=== PATIENT | male | born 1945 | race Caucasian/White ===

== ENCOUNTER 2018-09-14 09:07 | Inpatient (IN) ==
[~2018-09-14 09:07] MED LIST: ceFAZolin 1,000 MG, Sodium Chloride IRRigation 1,000 ML IR ONE
--- NOTE | 2018-09-14 09:10 | Anesthesia Evaluation PreOp ---
Date of Encounter: 09/14/18 Time of Encounter: 09:16 - Past History Planned Operation: Left CEA Cardiac History: HTN, Hyperlipidemia, Other (Left Carotid Stenosis) Pulmonary History: Denies Any Significant HX PATIENT FINANCIAL REPRESENTATIVE History: Denies Any Significant HX Other Medical History: Diabetes Type II, GERD (Hiatal Hernia), Other (Gout) Anesthesia History: No Prior Anesthetic Complications, Past Anesthesia (colonoscopy, bowel resection) Alcohol Use: none Drug use: none Medications and Allergies Allopurinol [Zyloprim 100 MG] 100 mg PO DAILY 09/10/18 [History] Atorvastatin Calcium [Lipitor] 10 mg PO DAILY 09/10/18 [History] Cholecalciferol (Vitamin D3) [Vitamin D3] 1,000 unit PO DAILY 09/10/18 [History] Finasteride [Proscar] 5 mg PO DAILY 09/10/18 [History] Latanoprost [Xalatan] 1 drop OP HS 09/10/18 [History] Losartan Potassium 25 mg PO DAILY 09/10/18 [History] Metoprolol Succinate [Toprol Xl] 50 mg PO DAILY 09/10/18 [History] Spironolactone [Aldactone] 25 mg PO DAILY 09/10/18 [History] dilTIAZem HCl [Diltiazem 24Hr Cd] 360 mg PO DAILY 09/10/18 [History] Allergy/AdvReac Type Severity Reaction Status Date / Time No Known Allergies Allergy Verified 09/10/18 08:40 - Meds/Allergy Pre-op Review Medications Reviewed: Yes Allergies Reviewed: Yes Beta Blockers on Current Med List: Yes If Beta Blockers taken, Date/Time (Last Dose taken): not given due to Low BP Anesthesia Results - Labs Laboratory Tests 09/02/18 09/08/18 09/08/18 13:54 08:41 08:41 WBC 10.6 Hgb 14.2 Hct 44.1 Plt Count 263 INR 1.0 Sodium 138 Potassium 4.5 Chloride 106 Carbon Dioxide 23 BUN 38 H Creatinine 1.86 H - Imaging EKG: report reviewed (SINUS BRADYCARDIA WITH FIRST DEGREE AV BLOCK NONSPECIFIC T-WAVE ABNORMALITY) Anesthesia Exam O2 Sat Height 1.6 m Weight 75.75 kg O2 Sat by Pulse Oximetry 99 Vital Signs Temp Pulse Resp BP Pulse Ox 97.5 F L 55 18 154/71 99 09/14/18 09:28 09/14/18 09:28 09/14/18 09:28 09/14/18 09:28 09/14/18 09:28 NPO (# of Hours): > 8 Hrs Pain Scale: 0 Pain Scale Used: Numeric (1 - 10) - HEENT Pupil (Motor): Pupils equal, EOMI Mallampati: III (Recessed chin - Have glide scope available) Teeth: Normal Oral Opening: Greater than 3 - PATIENT FINANCIAL REPRESENTATIVE LOC: Oriented PATIENT FINANCIAL REPRESENTATIVE Motor: Normal RUE, Normal LUE, Normal RLE, Normal LLE, Normal Face PATIENT FINANCIAL REPRESENTATIVE Sensory: Normal: RUE, LUE, RLE, LLE, Face - Cardiac Rhythm: Regular Murmur: None JVD: No Carotid Bruit: No - Pulmonary Breath Sounds: bilateral Clear Respiratory Effort: Symmetrical Anesthesia Assess/Plan ASA Score: 3 Level of consciousness: Cooperative Anesthetic Plan: General Autologous Blood: Yes Monitoring Plan: Standard Monitors, A-Line Recovery Plan: PACU
[2018-09-14] MEDS ORDERED: *HR* Remifentanil 2 MG VIAL IVP ONE (09:43)
[2018-09-14] MEDS ORDERED: *HR* FentaNYL (PF) 100 MCG/2 ML VIAL ONE (09:47)
[2018-09-14] MEDS ORDERED: *HR* Heparin 5,000 UNIT/ML VIAL ONE (09:47)
[2018-09-14] MEDS ORDERED: *HR* Succinylcholine 200 MG/10 ML VIAL IVP ONE (09:47)
[2018-09-14] MEDS ORDERED: Ondansetron 4 MG/2 ML VIAL ONE (09:47)
[2018-09-14] MEDS ORDERED: Lidocaine -MPF 2% 2 ML VIAL ONE ×2 (09:47→10:35)
[2018-09-14] MEDS ORDERED: *HR* Phenylephrine 10 MG/ML VIAL ONE (09:47)
[2018-09-14] MEDS ORDERED: EPHEDrine 50 MG/ML VIAL ONE (09:47)
[2018-09-14] MEDS ORDERED: *HR* Propofol 200 MG/20 ML VIAL IVP ONE (09:47)
[2018-09-14] MEDS ORDERED: Dexamethasone 4 MG/ML VIAL ONE (09:47)
[2018-09-14] MEDS ORDERED: Heparin 1,000 UNITS/500 mL 500 ML ONE (09:49)
[2018-09-14] MEDS ORDERED: Albuterol 2.5 MG/3 ML NEBULIZER IH ONE (09:50)
[2018-09-14] MEDS ORDERED: *HR* Promethazine 25 MG/ML VIAL IVP PRN (09:50)
[2018-09-14] MEDS ORDERED: Ondansetron 4 MG/2 ML VIAL IVP ONE (09:50)
[2018-09-14] MEDS ORDERED: *HR* HYDROmorphone (PF) 1 MG/ML SYRINGE IVP PRN (09:50)
[2018-09-14] MEDS ORDERED: *HR* Labetalol 20 MG/4 ML SYRINGE IVP PRN (09:50)
[2018-09-14] MEDS ORDERED: *HR* OxyCODONE Immed Rel 5 MG TABLET PO PRN (09:50)
[2018-09-14] MEDS ORDERED: CeFAZolin Syr 2,000MG/20 ML 2,000 MG/20 ML SYRINGE IVPB ONE (09:57)
[2018-09-14] MEDS ORDERED: Ringers Solution, Lactated 1,000 ML IVC SCH (10:00)
--- NOTE | 2018-09-14 10:31 | History & Physical Report ---
Date of Encounter: 09/14/18 Time of Encounter: 10:30 24 Hour HP Update - Instructions Instructions: If the History and Physical is less than 30 days old and was completed prior to A.M. admission and or procedure and has NOT been updated on calendar day of procedure please complete this update prior to performing procedure. - Update Patient reports changes in Medical Condition: No Changes in examination, assessment, or condition: No Preop tests/diagnostics Reviewed: Yes Surgery Remains Indicated: Yes Consent for Planned Operative Procedure(s) Verified: Yes - Pre-Operative Checklist Preoperative Checklist Indicated: Yes Prophylactic Antibiotic Ordered: Yes Home Medications Include Beta Becki: Yes Beta Becki Taken Today (Day of Surgery): Yes Beta Becki Taken Yesterday (Day Prior to Surgery): Yes Is VTE Prophylaxis Indicated?: Yes
[2018-09-14] MEDS ORDERED: *HR* Labetalol 100 MG/20 ML MDV ONE (10:33)
[2018-09-14] MEDS ORDERED: NiCARdipine 2.5 MG/10 ML Syringe IVPB ONE (10:34)
[2018-09-14] MEDS ORDERED: Heparin 1,000 UNITS/500 mL 1,500 ML ONE (10:36)
[2018-09-14] MEDS ORDERED: Lidocaine 1% 20 ML MDV ONE (10:36)
--- NOTE | 2018-09-14 13:47 | Operative Note ---
Date of procedure: 09/14/18 Pre-op diagnosis: left carotid stenosis Post-op diagnosis: same Procedure: left carotid endarterectomy with bovine patch angioplasty Complications: 0 Anesthesia: GETA Surgeon: Campos Rowley Was there an life enrichment assistant present: No Estimated blood loss (cc): 75 Specimen: 0 Condition: stable Disposition: PACU Procedure in Detail: History Sebastian Rogel is a 73-year-old white male who was seen for an abnormal carotid duplex scan. It showed marked abnormalities in the left carotid system. This then led to an angiogram which showed a 90% left bulbar and proximal internal carotid artery stenosis. Patient was recommended to undergo surgery and now comes to the operating room today. Procedure After informed consent was obtained the patient was taken to the operating room. General endotracheal anesthesia was performed under arterial line pressure monitoring. The left neck was sterilely prepped and draped. An oblique incision was then made on the left neck paralleling the anterior border of the sternocleidomastoid muscle. Dissection was carried down to the carotid sheath. The vessel itself was quite deep and there was an inflammatory film surrounding the carotid structures. After appropriate dissection was completed selective control was obtained of the carotid vessels. The hypoglossal nerve was identified and preserved during the dissection. 5000 units heparin were then administered intravenously. After 3 minutes the vessels were clamped with the internal carotid artery clamped first. Using an 11 blade knife and Castillo scissors the artery was opened. The patient had very calcific plaque focused at the distal aspect of the common carotid and bulbar area. There were no findings of intramural or intraluminal thrombus. An 8-Faroese shunt was then inserted atraumatically. Patency of the shunt was confirmed by the use of intraoperative Doppler. The endarterectomy was then begun at the distal aspect of the common carotid artery. A dissection plane was established and it was carried circumferentially proximally and distally. The plaque was then divided at the common carotid level. Dissection was then carried distally through the bifurcation. The superior thyroid and external carotid artery were endarterectomized. The endpoint on the internal was smooth and no tacking sutures were necessary. The calcific plaque was then removed from the vessel. The bed of the vessel was then copiously irrigated with heparinized saline and all loose material or debris was removed. A bovine pericardial patch angioplasty was then performed. This was sewn into position using 2 6-0 Prolene sutures. Leaving a small space open on the suture line the shunt was clamped and divided and removed. The final few sutures were then placed. The internal carotid artery was allowed to back flushed and reclamped. Then the external and common carotid arteries vessels were opened and then finally the internal carotid was reopened. After evaluating this by palpation and Doppler the wound was irrigated and hemostasis achieved. A superficial cervical block using half percent Marcaine was performed. The wound was then closed in layers using absorbable suture. A dry sterile dressing was applied. The patient was extubated in the operating room. He was found to be neurologically intact. He was then transported from the operating room to the recovery room in stable condition.
--- NOTE | 2018-09-14 14:39 | Anesthesia Evaluation Post Op ---
Date of Encounter: 09/14/18 Time of Encounter: 14:38 - Vital Signs Vital Signs: Vital Signs/O2 Sat, Most Current Temp Pulse Resp BP Pulse Ox 97.7 F 54 16 126/64 100 09/14/18 14:19 09/14/18 14:29 09/14/18 14:29 09/14/18 14:29 09/14/18 14:29 - Lungs Lungs: Clear Ascult./Percussion - Airway Airway: Non-obstructed - Cardiovascular Regular Rate - Mental Status Mental Status: Alert & Oriented, Answers Appropriately - Pain Pain Scale: 0 Pain Scale used: Numeric (1 - 10) - Nausea Vomiting Nausea Vomiting: Not Present - Hydration Hydration: Ice chips, Guerrier catheter - Discharge PostOp Status: Transfer Patient to floor
[2018-09-14] MEDS ORDERED: Naloxone 0.4 MG/ML INJ IVP PRN (14:48)
[2018-09-14] MEDS ORDERED: *HR* HYDROcodone/Acet 5/325 mg TABLET PO PRN (14:48)
[2018-09-14] MEDS ORDERED: Ondansetron 4 MG/2 ML VIAL IVP PRN (14:48)
[2018-09-14] MEDS ORDERED: Ibuprofen 400 MG TABLET PO PRN (14:48)
[2018-09-14] MEDS ORDERED: Latanoprost 2.5 ML BOTTLE BOTH EYES SCH (21:00)
[2018-09-14] MEDS ORDERED: Finasteride 5 MG TABLET PO SCH (21:00)
[2018-09-14] MEDS ORDERED: Spironolactone 25 MG TABLET PO SCH (21:00)
[2018-09-14] MEDS ORDERED: Metoprolol XL (24 HR) Succ 50 MG TAB.ER.24H PO SCH (21:00)
[2018-09-15 03:42] LABS: Basophils % 0.1 %; Hematocrit 35.9 % (37.5-50.1); Immature Granulocytes % 0.5 % (0-4); Lymphocytes # 1.8 K/mcL (0.6-4.6); Lymphocytes % 9.2 %; Mean Corpuscular HGB Conc 33.4 g/dL (31.6-35.5); Mean Corpuscular Hemoglobin 32.1 pg (28.0-33.3); Mean Platelet Volume 10.6 fL (9.4-12.4); Monocytes # 0.6 K/mcL (0.0-1.3); Neutrophils # 16.6 K/mcL (1.6-8.9); Platelet Count 216 K/mcL (140-400); Red Blood Count 3.74 M/mcL (4.19-5.50); Red Cell Distribution Width 13.2 % (11.5-14.5); Segmented Neutrophils % 87.2 %
[2018-09-15 04:10] LABS: Calcium 9.2 mg/dL (8.6-10.3); Potassium 4.8 mEq/L (3.5-5.1)
[2018-09-15 07:38] VITALS: BP 139/99
[2018-09-15] MEDS ORDERED: Diltiazem CD (24hr) 180 MG CAPSULE PO SCH (09:00)
[2018-09-15] MEDS ORDERED: Cholecalciferol (D-3) 1,000 UNIT TABLET PO SCH (09:00)
--- NOTE | 2018-09-15 09:20 | Discharge Summary ---
Orders not resulted at time of discharge: Pending orders 09/10/18 17:32 Red Blood Cells [BBK] Routine Date of Encounter: 09/15/18 Time of Encounter: 08:30 - Discharge Diagnosis (1) Carotid arterial disease Priority: Primary Status: Acute Comments: Patient was found to have a bruit and abnormal carotid duplex scan. This led to an angiogram with the finding of critical left internal carotid artery stenosis. Qualifiers: Carotid artery disease type: stenosis Laterality: left Qualified Code(s): I65.22 - Occlusion and stenosis of left carotid artery (2) Hypertension Priority: Secondary Status: Chronic Qualifiers: Hypertension type: essential hypertension Qualified Code(s): I10 - Essential (primary) hypertension (3) Hyperlipidemia Priority: Secondary Status: Chronic Qualifiers: Hyperlipidemia type: unspecified Qualified Code(s): E78.5 - Hyperlipidemia, unspecified - Hospital Course Hospital course: Mr. Rogel is a 73 year old male With critical left internal carotid artery stenosis. He is asymptomatic. He underwent a left carotid endarterectomy under general endotracheal anesthesia. The patient had no periprocedural complications. He had an uneventful postoperative recovery. He was healing well. He was felt that for discharge on the morning of postoperative day #1. Instructions were given in regards to his diet, medications, wound care, and activities. - Time Spent with Patient Total time spent providing and/or coordinating discharge services: - Discharge Medications Home Medications: Acetaminophen [Tylenol] 500 mg PO Q6HR PRN 09/14/18 [History] Allopurinol [Zyloprim 100 MG] 100 mg PO BID 09/14/18 [History] Atorvastatin [Lipitor] 5 mg PO HS 09/14/18 [History] Cholecalciferol (D-3) [Vitamin D] 1,000 unit PO DAILY 09/14/18 [History] Docusate [Colace] 200 mg PO BID 09/14/18 [History] Finasteride [Proscar] 5 mg PO HS 09/14/18 [History] Latanoprost [Xalatan] 1 drop BOTH EYES HS 09/14/18 [History] Losartan Potassium 12.5 mg PO DAILY 09/14/18 [History] Metoprolol Succinate [Toprol Xl] 50 mg PO HS 09/14/18 [History] Omeprazole [PriLOSEC] 20 mg PO DAILY 09/14/18 [History] Spironolactone [Aldactone] 25 mg PO HS 09/14/18 [History] dilTIAZem HCl [Diltiazem 24Hr Cd] 360 mg PO DAILY 09/14/18 [History] Allergies/Adverse Reactions: Allergy/AdvReac Type Severity Reaction Status Date / Time tetracycline Allergy Hives Verified 09/14/18 09:56 cholesterol medication AdvReac Itching Uncoded 09/14/18 09:58 Date of admission: 09/14/18 14:45 Primary care physician: [facility] Consults: None Procedure(s) Performed: Left carotid endarterectomy with patch angioplasty Discharging clinician: Campos Rowley Anticipated date of discharge: 09/15/18 Exam Vital Signs, Last 4 Hours Temp Pulse Resp BP Pulse Ox 09/15/18 07:30 97.9 F 58 16 139/99 97 General: Present: Conversant, No Apparent Distress, Well developed, Well nourished HEENT: Present: Atraumatic, Normocephaly, Trachea midline Neck: Absent: JVD Cardiac: Present: Reg Rate and Rhythm Lungs: Present: Normal Breath Sounds Neuro: Present: Alert and responsive, No focal deficits noted, Cranial nerves grossly intact, Motor nerves grossly intact, Sensory nerves grossly intact Vascular: Present: Surgical incisions (Left neck incision is clean and dry) - Patient Status Disposition: Home, Self-Care Condition: Good Functional capacity at discharge: independent ambulation Overall status at discharge: patient is progressing back to baseline - Discharge Instructions Follow Up With: [place],PCP [Primary Care Provider] - 09/21/18 11:30 am Campos Rowley MD [Partnered Physician] - 09/27/18 9:30 am (this appointment is in [place]) Additional Instructions: Use ice pack on left neck for the next 48 hours. No lifting greater than 10 pounds. No driving. No manual labor. Deep left neck dry for the next 5 days Patient may ambulate inside and outside. Patient may use stairs. Resume usual home medications - Diet and Activity Activity: increase activity as tolerated Diet: advance to your usual diet
== END 2018-09-15 10:27 | disposition home or self-care (01) | DRG 39 ==
LOC: SAMDAY 09:07 → 2NNU 14:45
PROVIDERS: ADMIT Surgery Vascular Surgery; ATTEND Surgery Vascular Surgery